=== PATIENT | female | born 2000 | race Caucasian/White ===

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

== ENCOUNTER 2025-03-10 15:12 | Emergency (ER) | payer OTHER ==
[~2025-03-10] VITALS: Ht 157.5 cm; Wt 65.9 kg
[2025-03-10 15:22] VITALS: BP 136/86; PULSE 77; RESP 18; TEMP 98.2; O2SAT 99
[2025-03-10 16:00] LABS: PLATELET COUNT (AUTO) 319 K/uL (150-450); RED BLOOD CELL COUNT(AUTO) 4.65 MIL/uL (4.00-5.20); RED CELL DISTRIBUTION WIDTH 13.2 % (11.5-14.5); WHITE BLOOD COUNT (AUTO) 11.1 K/uL (4.5-11.0)
[2025-03-10] MEDS: SODIUM CHLORIDE 0.9% 1,000 ML IV ONE (16:41)
[2025-03-10 17:39] LABS: APPEARANCE,URINE CLEAR (CLEAR); GLUCOSE, URINE (UA) NEGATIVE (NEGATIVE); LEUKOCYTE ESTERASE ,URINE NEGATIVE (NEGATIVE); NITRATE,URINE NEGATIVE (NEGATIVE); OCCULT BLOOD,URINE NEGATIVE (NEGATIVE); SPECIFIC GRAVITIY, URINE 1.030 (1.003-1.030)
== END 2025-03-10 18:17 | disposition home or self-care (01) ==
LOC: EMS 15:12
DX: O20.8 Other hemorrhage in early pregnancy (principal); N89.8 Other specified noninflammatory disorders of vagina; Z3A.10 10 weeks gestation of pregnancy
CPT/HCPCS: 76801; 81003; 84702; 85025; 86901; 99284